=== PATIENT | female | born 1950 | race Caucasian/White ===

== ENCOUNTER → 2020-03-16 09:33 | Outpatient (BNVA) | payer MEDICARE, SELFPAY | PROVIDERS: Family Provider Family Medicine; PCP Family Medicine; Visit Provider Internal Medicine | DX: N81.10 Cystocele, unspecified (principal) | CPT/HCPCS: 87635 ==

== ENCOUNTER 2020-03-22 07:57 | Day surgery (SDC) | payer MEDICARE, SELFPAY ==
[2020-03-18 12:30] VITALS: BMI 24.4
--- NOTE | 2020-03-18 12:49 | P.ANESASSM_ITS ---
Pre-Anesthetic Assessment Pre-Anesthetic Assessment: Height/Weight: Height 1.6 m Weight 62.596 kg Preop Diagnosis: Vaginal vault prolapse after hysterectomy, Cystocele, Rectocele Proposed Procedure: Operation Date: 03/22/20 09:45 Proposed Procedures p Laparoscopic Uterosacral Ligament Suspen 87567 [id number] N81.10(Not Applicable) - MD renny Keith Posterior Repair Posterior Colporrhaphy(Not Applicable) - MD renny Keith poss Anterior Repair Anterior Colporrhaphy(Not Applicable) - MD renny Keith Cystoscopy(Not Applicable) - Abdifatah Waite MD Familial anesthetic complications: No problems Social: Social History: Tobacco Exam: Pre-Anes Outpt Exam: alert, oriented x 3, clear to auscultation bilaterally and regular rate & rhythm Airway: Cervical ROM: WNL MP: 2 Dentition: False CV/HEM: CV/HEM: HTN Metabolic: Metabolic: Hyperlipidemia Neuropsych: Neuropsych: VARGAS Comments: trigeminal neuralgia Anesthetic Plan: ASA status: 2 Anesthesia: General Risk of > 500 ml blood loss (7ml/kg in children): No PFSH Anesthesia PFSH: Medical History Hypercholesteremia Controlled with medication. Diagnosed in the Hypertension Diagnosed in 2019 and has been recently started on medication. Managed by primary care provider Migraines Managed with medication and Botox with Dr. Weaver. Surgical History H/O removal of cyst From jaw at the age of 10 S/P hysterectomy Vaginal hysterectomy with bilateral oophorectomy by Dr. Sarmiento in 1987 done for prolapse. Patient states pathology was benign. S/P lumpectomy, left breast Benign per patient. S/P tonsillectomy at age 1, patient thinks they may have taken adenoids as well but is unsure S/P tubal ligation 1983, done through the umbilicus Status post surgery Removal of mass from fallopian tube in the early . Benign-done by vertical midline infraumbilical incision. Status post surgery History of bilateral RK surgery and cataract removal Family History Family/Other Diabetes maternal great aunt Stroke maternal great aunt Mother Hypertension Breast cancer Mother, diagnosed at age 89 Uterine cancer Mother had a complete hysterectomy in her 30s due to female cancer Daughter Breast cancer diagnosed at age 50 Thyroid condition Denies family history of Colon cancer Ovarian cancer Heart disease Hyperlipidemia Social History (Updated 03/18/20 @ 10:24 by Marianne Philip LPN) Smoking and tobacco status: current every day smoker Alcohol intake: unknown Other details last substance use: Denies drug use Additional social history: Tobacco use: Started smoking at age of 26 and currently smokes 1 pack of cigarettes a day Drug use: Denies Alcohol abuse: Drinks an alcoholic beverage once a year Work: 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 Data Anesthesia Cardiac Studies: No Data to Display
[2020-03-18 12:59] LABS: Basophils % 0.3 %; Eosinophils % 0.6 %; Hematocrit 38.1 % (37.0-47.0); Hemoglobin 12.7 g/dL (11.5-15.3); Lymphocytes # 1.7 10^3/uL (0.8-4.8); Lymphocytes % 25.2 %; Mean Corpuscular HGB Conc 33.3 g/dL (30.0-36.0); Mean Corpuscular Hemoglobin 31.4 pg (28.0-34.0); Mean Corpuscular Volume 94.3 fL (81-99); Mean Platelet Volume 12.2 fL (7.4-10.4); Monocytes # 0.5 10^3/uL (0.2-0.9); Neutrophils % 66.6 %; Nucleated Red Blood Cells % 0 %; Platelet Count 183 10^3/cmm (130-400); Red Blood Count 4.04 10^6/uL (4.1-5.3); Red Cell Distribution Width 12.5 % (12.1-15.1); White Blood Count 6.8 10^3/uL (4.0-10.0)
[2020-03-22] VITALS (13 sets, daily range): BP systolic 139–188; BP diastolic 56–73; PULSE 70–96; RESP 13–24; TEMP 36.4–36.8; O2SAT 92–99
[2020-03-22] MEDS: sodium chloride 0.9% 1,000 ML 30 ML IV (08:33)
[2020-03-22] MEDS: phenazopyridine 100 mg Tablet 200 MG PO (08:34)
--- NOTE | 2020-03-22 09:16 | ANES.PAUD2 ---
Pre-Anesthetic Update Pre-Anesthetic Assessment: Date of Surgery/Procedure: 03/22/20 Preop Diagnosis: Vaginal vault prolapse after hysterectomy, Cystocele, Rectocele Proposed Procedure: Operation Date: 03/22/20 09:30 Proposed Procedures p Laparoscopic Uterosacral Ligament Suspen 46039 [id number] N81.10(Not Applicable) - Abdifatah Waite MD s Posterior Repair Posterior Colporrhaphy(Not Applicable) - Abdifatah Waite MD s poss Anterior Repair Anterior Colporrhaphy(Not Applicable) - Abdifatah Waite MD s Cystoscopy(Not Applicable) - Abdifatah Waite MD Any changes to Pre-Anesthetic Assessment?: No Last Intake: Intake Last Liquid Date 03/21/20 Last Liquid Time 23:00 Last Solid Date 03/21/20 Last Solid Time 19:00 Vitals: Temperature 97.7 F 03/22/20 08:09 Pulse Rate 72 03/22/20 08:09 Pulse Rhythm 03/22/20 08:12 Pulse Strength 3+ Normal 03/22/20 08:12 Respiratory Rate 18 03/22/20 08:09 Blood Pressure 188/65 03/22/20 08:09 Blood Pressure Melissa n 106 03/22/20 08:09 Pulse Oximetry 99 03/22/20 08:09 Oxygen Delivery Me thod 03/22/20 08:12 Exam: Pre-Anes Outpt Exam: alert, oriented x 3, clear to auscultation bilaterally and regular rate & rhythm Cardiac Studies: No Data to Display
--- NOTE | 2020-03-22 11:09 | W.PM.OPSUD ---
Surgery/Procedure H&P Update DATE OF PROCEDURE: March 22, 2020 DATE H&P PERFORMED: 03/18/20 H&P UPDATE INFORMATION: I have reviewed H&P completed within last 30 days, I have examined patient prior to procedure, No changes to prior documentation and H&P is in [facility] EMR on date indicated PREOP DIAGNOSIS: Vaginal vault prolapse after hysterectomy, Cystocele, Rectocele PLANNED PROCEDURE: Operation Date: 03/22/20 09:30 Proposed Procedures p Laparoscopic Uterosacral Ligament Suspen 34774 [id number] N81.10(Not Applicable) - Abdifatah Waite MD s Posterior Repair Posterior Colporrhaphy(Not Applicable) - Abdifatah Waite MD s poss Anterior Repair Anterior Colporrhaphy(Not Applicable) - Abdifatah Waite MD s Cystoscopy(Not Applicable) - Abdifatah Waite MD
--- NOTE | 2020-03-22 11:56 | SUR.OPER ---
Family Notified Of Patient's Status Via Phone.
--- NOTE | 2020-03-22 13:26 | SUR.OPER ---
Family Notified Of Patient's Status Via Phone.
--- NOTE | 2020-03-22 14:11 | PM.OP ---
Operative Report Date of procedure: March 22, 2020 Pre-op Diagnosis: Vaginal vault prolapse after hysterectomy, Cystocele, Rectocele Post-op Diagnosis: Vaginal vault prolapse after hysterectomy, Cystocele, Rectocele, Extensive omental and bowel adhesions Procedure Done: Laparoscopic uterosacral ligament suspension with laparoscopic enterocele repair, Laparoscopic lysis of adhesions. Specimens removed/disposition: None Surgeon: Abdifatah Waite Office Machinery Or Equipment Installer: None Anesthesia: General Estimated blood loss (mL): 50 IV fluids (mL): 1,000 Complications: None Findings: Extensive omental adhesions to the anterior abdominal wall extending from above the navel to the level of the pelvic brim. It extended for a width of approximately 4 cm at the cephalic end and narrowed down to approximately a centimeter at the lower end. Within the pelvis, the omentum was densely adherent along the bladder. The sigmoid colon was adherent along the left pelvic brim and pelvic sidewall. Fimbriated end of the right fallopian tube was identified. The right ovary was surgically absent. The left tube and ovary were surgically absent. Large enterocele was noted. Brief History: Patient is a 69-year-old female 6, para 6 who is status post hysterectomy in 1987. She reports having had both tubes and ovaries removed as well. She presented to the office as a referral from Dr. Mclaughlin on 01/18/2020 and was evaluated by Dr. Juarez. Patient reported that she had a bulge that was noted while wiping with it extending down to the vaginal opening and occasionally beyond. On evaluation, she was found to have a second-degree vault prolapse with a first to second-degree cystocele and 3rd-4th degree rectocele. Treatment options were discussed with her questions were answered. She has been scheduled for a laparoscopic uterosacral ligament suspension, Possible anterior repair, posterior repair, cystoscopy. Procedure: Patient was taken to the operating room where general anesthesia was obtained. She was prepped and draped in usual sterile fashion dorsal supine position with legs in Guillermo style stirrups. Tay catheter was inserted. Sequential compression boots have been placed prior to starting the case. The infraumbilical area was injected with 1% lidocaine with epinephrine. Skin incision was made with a knife in the lower edge of the navel and a size 10 trocar and sheath were inserted under direct visualization. Trocar was removed and scope placed, confirming intra-abdominal placement. Abdomen was plated with carbon dioxide. Patient was found to have adhesions down the midline of the abdomen preventing visualization of any lower pelvic structures with the umbilical site. As a result, a left upper quadrant site trocar was placed. The skin was injected with 1% lidocaine with epinephrine. Skin incision was made with a knife and a trocar and sheath inserted under direct visualization. 5 mm scope was inserted and the abdomen further inspected. Adhesions of the omentum were present and extended from approximately a centimeter above the navel down the midline to approximately the pelvic brim. At the cephalic end of the adhesions, it was approximately 4 cm in width and narrowed to approximately 1 cm width at the lower end. In the left lower quadrant lateral to the inferior epigastric vessels, skin was injected with 1% lidocaine with epinephrine. Skin incision made with a knife and a 5 mm trocar and sheath inserted under direct visualization. Using laparoscopic scissors with monopolar cautery, the omental adhesions were carefully taken down. This took approximately 15 minutes to complete. In the right lower quadrant lateral to the inferior epigastric vessels, the skin was injected with 1% lidocaine with epinephrine. Skin incision was made with a knife and a 5 mm trocar and sheath inserted under direct visualization. The pelvis was then inspected. The omentum was found to be densely adherent to the bladder area, almost completely obstructing visualization of the main part of the pelvis. The sigmoid was also found to be densely adherent along the left pelvic brim and down the left pelvic sidewall. Using laparoscopic scissors, the adhesions of the omentum were carefully taken down. During this process, the fimbriated end of the right fallopian tube was identified. Once the omentum was freed, the adhesions of the sigmoid colon were carefully taken down sharply. Care was taken not to damage the bowel or underlying structures in the process. This portion of the adhesio lysis took approximately an hour and 15 minutes to complete for a total adhesio lysis of an hour and 30 minutes. Pelvis was then thoroughly inspected. Right ovary was noted to be surgically absent. Left tube and ovary were surgically absent. Uterus was surgically absent. The right fimbriated end of the fallopian tube was present. A large enterocele was also noted. Due to bleeding from the fallopian tube, decision was made to excise the tube. Using LigaSure device, the fallopian tube was freed from the right pelvic sidewall and removed. Approximately 2 fingerbreadths above the pubic symphysis in the midline, skin was injected with 1% lidocaine with epinephrine. Skin incision was made with a knife and a 5 mm trocar and sheath inserted under direct visualization. Using 2-0 silk suture, a pursestring stitch was placed, performing a modified Moschcowitz type enterocele repair. Care was taken not to incorporate or kink the ureters in this process. This was then tied and completely closed the enterocele pouch. The vaginal vault was then deflected and a cephalad direction identifying the cephalad most displacement. Using 0 Ethibond suture, stitch was placed into the right uterosacral ligament at the level of the cephalad most displacement of the vagina. This was then incorporated into the right side of the vaginal vault. It was then tied, securing the vagina to the uterosacral ligament. The left side was inspected, but uterosacral ligament could not be adequately identified and as a result decision was made to not to place a stitch on the left side. Tay catheter was removed and cystoscopy performed. Both ureters were noted to be effluxing urine well. No bladder masses were noted. No suture material was noted within the bladder. Bladder was drained and Tay catheter was reinserted. The vagina was then inspected and the cystocele and rectocele were no longer present following the vault suspension. As result anterior and posterior repair were not needed. The abdomen was deflated and the sheaths were removed. Skin incisions were closed with 4-0 Vicryl suture. Skin glue were applied to all sites. Patient tolerated procedures well. Sponge and needle counts were correct. Drains: Tay catheter Post Operative Status: Patient was transferred recovery room in satisfactory condition.
--- NOTE | 2020-03-22 14:20 | SUR.PHASEI ---
1418 PATIENT TO PACU FROM OR. NO DISTRESS. SPO2 98% ON SIMPLE MASK AT 8L. DOS SANTOS CATH IN PLACE. 4 INCISIONS TO ABDOMEN, CLOSED WITH EXOFIN.
[2020-03-22] MEDS: ondansetron 2 mg/ML SDV 2 mL 4 MG IVP (14:40)
--- NOTE | 2020-03-22 14:46 | PM.PACU ---
PACU note Post-Anesthesia Exam: awake and vital signs stable Disposition: admitted
--- NOTE | 2020-03-22 15:01 | SUR.PHASEI ---
1446 PATIENT TO OB. C/O CRAMPING TO ABDOMEN. DOS SANTOS CATH IN PLACE. A/OX3.
[2020-03-22] MEDS: ibuprofen 600 mg Tablet PO (15:32)
--- NOTE | 2020-03-22 19:20 | P.DS_ITS ---
Discharge Providers Date of Discharge: March 22, 2020 Attending Provider at Discharge: Abdifatah Waite MD Primary Care Provider: Mahad Mclaughlin MD Diagnoses at Discharge Discharge Diagnosis (1) Vaginal vault prolapse after hysterectomy: Status: Acute (2) Adhesion of omentum: Status: Acute (3) Intestinal adhesions: Status: Acute Reason for Visit Reason for Visit: vaginal prolapse Hospital Course Hospital Course: Patient is a 69-year-old female 6, para 6 who is status post hysterectomy in 1987. She presented to the office as a referral from Dr. Mclaughlin due to a bulge at the vaginal opening. She states that this will protrude beyond the opening at times. She denied urinary leaking problems with associated with it. She had been found to have a second-degree vaginal vault prolapse with a first to second-degree cystocele and 3rd-4th degree rec tocele. Treatment options were discussed with her and she was presenting for surgical treatment today. She had a laparoscopic uterosacral ligament suspension with enterocele repair and extensive adhesio lysis. She had been found to have extensive adhesions during the surgery. After the vault suspension, she was noted to have no significant cystocele or rectocele and as a result no further repair was needed for that. Following surgery she was initially treated with parenteral pain medication. She was transferred to the floor for further monitoring and pain management. By the evening, she was reporting good pain management with oral medications. She denied lightheadedness or dizziness with ambulation. She denied shortness of breath or chest pains. Tay catheter had been removed and she denied problems with urination. She was requesting to go home. Since she was doing well, she was discharged to home. She was instructed to follow-up in the office at her scheduled postoperative visit in approximately 2 weeks. She was also instructed to resume her home medications. She was given a prescription for tramadol and was to use [id number] ibuprofen. Physical Exam Urinary Catheter Management^: F: Cath Placed During This Visit: yes Urinary Catheter Date of Insertion: 03/22/20 Urinary Catheter Time of Insertion: 11:42 Discharge Data Data Completed and Pending: Pending at discharge Category Date Time Status ES surgery / GI i mages Routine Exams 03/22/20 10:38 Taken Hemagram Timed Lab 03/23/20 05:00 Uncollected Retype for Patiet s ABO/Rh Routine Lab 03/22/20 09:23 Ordered Labs from last 24 hours 03/22/20 08:30 Blood Type AB Positive Rho(D) Type Positive Antibody Screen Negative Vitals: Last Vital Signs Temp 97.6 F 03/22/20 14:45 Pulse 72 03/22/20 14:45 Resp 13 03/22/20 14:45 BP 162/72 03/22/20 14:45 Pulse Ox 93 03/22/20 14:45 Discharge Plan Discharge Patient Disposition: Home Condition: Stable Prescriptions: New tramadol 50 mg Tablet 50 - 100 mg PO Q6H PRN (Reason: Moderate Pain) Qty: 20 RF: 0 Continued simvastatin 40 mg tablet 40 mg PO .every other day RF: 0 levetiracetam 1,000 mg tablet for suspension 1,000 mg PO DAILY RF: 0 diazepam 5 mg tablet 5 mg PO DAILY PRN (Reason: Anxiety) RF: 0 estradiol 0.5 mg tablet 0.5 mg PO DAILY Qty: 30 RF: 12 estradiol [Estrace] 0.01 % (0.1 mg/gram) cream 0.5 gm VAGINAL .twice weekly Qty: 42.5 RF: 1 Discharge Orders: Discharge Order (Routine); Ordered 03/22/20 Ordered By: Abdifatah Waite Referrals: Abdifatah Waite MD [Physician] - 04/07/20 8:00 am (Postoperative visit) Discharge Diet: Regular Discharge Activity: Limit activity as instructed Patient Instructions: OB Abdominal Surgery - [facility] Activity Restrictions/Additional Instructions: May use [id number]-oibrmok ibuprofen 200 mg, 3 tablets every 6 hours as needed for pain. May use MiraLAX (or store brand), follow instructions on bottle, as needed for constipation. Discharge Attestations Time Spent in Discharge Care*: less than 30 min Quality Metrics Clinical Quality Measures During this hospital stay, did patient experience: None Coding Level of Care Code Acute Spot Machine Operator for Chg Fwd Diagnoses Vaginal vault prolapse after hysterectomy N99.3 Adhesion of omentum K66.0 Intestinal adhesions K66.0
== END 2020-03-22 20:00 | disposition home or self-care (01) ==
LOC: OR 07:57 → OBGYN 14:47
PROVIDERS: PCP Family Medicine; Visit Provider Obstetrics & Gynecology
PROC: 0USG4ZZ Reposition Vagina, Percutaneous Endoscopic Approach (ICD-10-PCS; CPT 57425; principal; 2020-03-22 09:30)
PROC: 0TJB8ZZ Inspection of Bladder, Via Natural or Artificial Opening Endoscopic (ICD-10-PCS; CPT 52000; 2020-03-22 09:30)
DX: N99.3 Prolapse of vaginal vault after hysterectomy (principal); K66.0 Peritoneal adhesions (postprocedural) (postinfection); I10 Essential (primary) hypertension; E78.5 Hyperlipidemia, unspecified; F17.210 Nicotine dependence, cigarettes, uncomplicated
CPT/HCPCS: 57283; 12345; 36415; 85025; 86850; 86900; 87086; J0131; J0690; J2405; J2704; J3010; J3490; J7030

== ENCOUNTER 2020-11-14 12:01 | Outpatient (CLI) | payer MEDICARE, SELFPAY ==
--- NOTE | 2020-11-14 12:17 | XR_ITS ---
WS: [id number] Exam: XR ribs LT 2V* [id number] Date/Time of Exam: 11/14/2020 12:19 PM Reason For Exam: RIB PAIN, LEFT No acute left rib fracture noted. The left lung is clear and fully expanded. No pleural or pulmonary reactive changes. XR/XR ribs LT 2V* [id number] IMPRESSION: 1. Negative left rib study.
--- NOTE | 2020-11-14 12:18 | XR_ITS ---
WS: [id number] Exam: XR thoracic spine 3V* [id number] Date/Time of Exam: 11/14/2020 12:19 PM Reason For Exam: BACK PAIN No acute fracture or dislocation. Mild spondylosis. Slight levoscoliosis. Normal paraspinal soft tiss ues. Osteopenia. XR/XR thoracic spine 3V* [id number] IMPRESSION: 1. Mild degenerative changes and osteopenia. No fracture or malalignment. 2. Minimal scoliosis.
== END 2020-11-14 12:02 | disposition home or self-care (01) ==
PROVIDERS: PCP Family Medicine; Visit Provider Family Medicine
DX: R07.81 Pleurodynia (principal); M54.6 Pain in thoracic spine; M85.88 Other specified disorders of bone density and structure, other site
CPT/HCPCS: 71100; 72072

== ENCOUNTER 2021-09-08 13:20 | Outpatient (CLI) | payer MEDICARE, SELFPAY ==
--- NOTE | 2021-09-08 13:31 | MM_ITS ---
WS: [id number] BILATERAL 3D TOMOSYNTHESIS DIGITAL SCREENING MAMMOGRAPHY WITH CAD CLINICAL INFORMATION: SCREENING HISTORY: Screening mammogram. No current complaints. COMPARISON: July 01, 2018 TECHNIQUE: Bilateral CC and MLO views. FINDINGS: Scattered fibroglandular densities bilaterally. 7 mm ovoid nodule central RIGHT breast near the 12:00 position. Recommend RIGHT breast diagnostic mammography and ultrasound. Vascular calcification. LEFT breast is unchanged. IMPRESSION: MM/[place] [id number] BI-RADS: 0-Incomplete: Need additional imaging evaluation FOLLOW UP: Need Additional Imaging Recommend RIGHT breast diagnostic mammography and ultrasound in further evaluat ion.
== END 2021-09-08 13:21 | disposition home or self-care (01) ==
LOC: RADSHAW 13:26
PROVIDERS: PCP Family Medicine; Visit Provider Family Medicine
DX: Z12.31 Encounter for screening mammogram for malignant neoplasm of breast (principal)
CPT/HCPCS: 77063; 77067

== ENCOUNTER 2021-10-02 13:24 | Outpatient (CLI) | payer MEDICARE, SELFPAY ==
--- NOTE | 2021-10-02 13:32 | MM_ITS ---
WS: [id number] RIGHT 3D TOMOSYNTHESIS DIGITAL MAMMOGRAPHY WITH CAD CLINICAL INFORMATION: ABNORMAL MAMMOGRAM COMPARISON: September 08, 2021 TECHNIQUE: 3 views of the right breast were obtained. FINDINGS: Scattered fibroglandular densities of the right breast. Stable 7 mm ovoid nodule central RIGHT breast in the 12:00 position. Ultrasound is pending. Vascular calcification. ULTRASOUND BREAST RIGHT TECHNIQUE: Ultrasound right breast focused area of concern. CLINICAL INFORMATION: ABNORMAL MAMMOGRAM COMPARISON: None. FINDINGS: Ultrasound RIGHT breast at the 11 to 1:00 position. Slightly lobulated complex cyst at the 11:00 posi tion 2 cm from the nipple measuring 5.0 x 6.6 x 4.7 mm. Additional simple cyst at the 12:00 position measuring 5.0 x 4.9 x 2.4 mm. Recommend return to annual screening mammography. MM/[place] [id number] IMPRESSION: BI-RADS: 2-Benign FOLLOW UP: 1 Year Follow-up Recommend return to annual screening mammography.
== END 2021-10-02 13:25 | disposition home or self-care (01) ==
LOC: RAD 13:26
PROVIDERS: PCP Family Medicine; Visit Provider Family Medicine
DX: R92.8 Other abnormal and inconclusive findings on diagnostic imaging of breast (principal)
CPT/HCPCS: 76642; 77061

== ENCOUNTER → 2022-05-01 11:33 | Outpatient (BNVA) | payer MEDICARE, SELFPAY | PROVIDERS: PCP Family Medicine; Visit Provider Family Medicine | DX: Z51.81 Encounter for therapeutic drug level monitoring (principal); L29.9 Pruritus, unspecified; L50.9 Urticaria, unspecified; N95.1 Menopausal and female climacteric states | CPT/HCPCS: 80053; 85025; 85651; 86141 ==

== ENCOUNTER → 2023-02-12 14:47 | Outpatient (BNVA) | payer MEDICARE, SELFPAY | PROVIDERS: PCP Family Medicine; Visit Provider Family Medicine | DX: E78.5 Hyperlipidemia, unspecified (principal); Z13.220 Encounter for screening for lipoid disorders; R25.1 Tremor, unspecified; Z51.81 Encounter for therapeutic drug level monitoring | CPT/HCPCS: 80053; 80061; 83735; 84439; 84443; 85025 ==

== ENCOUNTER 2023-05-10 15:17 | Outpatient (CLI) | payer MEDICARE, SELFPAY ==
[2023-05-10] MEDS: iohexol 350 mg/mL 500 mL Btl (per mL) IV (15:20)
--- NOTE | 2023-05-10 15:30 | CTR_ITS ---
PROCEDURE INFORMATION: Exam: CT Abdomen And Pelvis With Contrast Exam date and time: 05/10/2023 3:28 PM Age: 72 years old Clinical indication: Abdominal pain; Other: Llq pain; Additional info: Llq abd pain, please schedule for 05/10/23 urgently. Thanks! TECHNIQUE: Imaging protocol: Computed tomography of the abdomen and pelvis with contrast. Radiation optimization: All CT scans at this facility use at least one of these dose optimization techniques: automated exposure control; mA and/or kV adjustment per patient size (includes targeted exams where dose is matched to clinical indication); or iterative reconstruction. Contrast material: OMNI 350; Contrast volume: 100 ml; Contrast route: INTRAVENOUS (IV); REPORTING DATA: Count of CT and Cardiac NM exams in prior 12 months: This patient has received 0 known CTs and 0 known cardiac nuclear medicine studies in the 12 months prior to the current study. COMPARISON: CT abdomen pelvis w con* [id number] 03/27/2019 9:38 AM RADIATION DOSE METRICS: Total DLP (mGy-cm): 277.08 FINDINGS: Liver: No mass. Gallbladder and bile ducts: No calcified stones. No ductal dilation. Pancreas: No ductal dilation. Spleen: No splenomegaly. Adrenal glands: No mass. Kidneys and ureters: No hydronephrosis. Stomach and bowel: No obstruction. Inflammatory changes around the sigmoid colon. On sagittal image 26 there is a 1.6 cm extraluminal density which could reflect developing phlegmon. No abscess at this time otherwise. Appendix: No evidence of appendicitis. Intraperitoneal space: No free air. No significant fluid collection. Vasculature: No abdominal aortic aneurysm. Lymph nodes: No enlarged lymph nodes. Urinary bladder: No acute findings. Reproductive: Unremarkable as visualized. Bones/joints: Degenerative changes without acute findings. Soft tissues: Unremarkable. CT/CT abdomen pelvis w con* [id number] IMPRESSION: Acute sigmoid diverticulitis. No discrete abscess at this time, however, there is a small thick extraluminal density as described. If clinically worsening/progressing, recommend follow-up for potential developing abscess.
== END 2023-05-10 15:18 | disposition home or self-care (01) ==
LOC: RAD 15:17
PROVIDERS: PCP Family Medicine; Visit Provider Family Medicine
DX: K57.32 Diverticulitis of large intestine without perforation or abscess without bleeding (principal); R10.32 Left lower quadrant pain
CPT/HCPCS: 74177; Q9967

== ENCOUNTER → 2023-08-08 09:00 | Outpatient (BNVA) | payer MEDICARE, SELFPAY | PROVIDERS: PCP Family Medicine; Referring Provider Family Medicine; Visit Provider Surgery | DX: K57.92 Diverticulitis of intestine, part unspecified, without perforation or abscess without bleeding (principal) | CPT/HCPCS: 99204 ==

== ENCOUNTER 2023-09-18 06:40 | Day surgery (SDC) | payer MEDICARE, SELFPAY ==
[2023-09-18] MEDS: sodium chloride 0.9% 1,000 ML 30 ML IV (07:10)
[2023-09-18 07:12] VITALS: BP 163/85; PULSE 85; RESP 18; TEMP 36.6; O2SAT 96; BMI 24.3
--- NOTE | 2023-09-18 07:43 | ANES.PREANE2 ---
Pre-Anesthetic Assessment Height/Weight: Height 1.59 m Weight 61.235 kg Temp Pulse Resp BP Pulse Ox O2 Del Method 97.8 F 85 18 163/85 96 Room Air 09/18/23 07:12 09/18/23 07:12 09/18/23 07:12 09/18/23 07:12 09/18/23 07:12 09/18/23 07:12 Operation Date: 09/18/23 08:00 Proposed Procedures p [id number] colon [id number] screen colon H risk K57.92(Not Applicable) - Js Stratton DO Familial anesthetic complications: None Was Beta Santa taken within 24 hours: N/A Was Clonidine taken within 24 hours: N/A Last intake: Intake Last Liquid Date 09/17/23 Last Liquid Time 23:30 Last Solid Date 09/16/23 Last Solid Time 18:00 Social Tobacco and No alcohol Exam alert, oriented x 3, clear to auscultation bilaterally and regular rate & rhythm Airway Mallampati: Class II Dentition: false CV/HEM Hypertension Metabolic Thyroid Disease Anesthetic Plan ASA status: 2 Anesthesia: MAC Risk of > 500 ml blood loss (7ml/kg in children): No Medications/Allergies Home Medications Medication Instructions Recorded Confirmed Last Taken Type ondansetron HCl 4 mg tablet 4 mg PO Q8H PRN nausea and 05/09/23 09/18/23 09/17/23 Rx vomiting #20 tabs diazepam 5 mg tablet 5 mg PO DAILY PRN Anxiety #30 tabs 06/14/23 09/18/23 09/17/23 Rx levothyroxine 50 mcg tablet 50 mcg PO DAILY #30 tabs 06/18/23 09/18/23 09/17/23 Rx promethazine 25 mg tablet 25 mg PO TID PRN nausea and 08/01/23 09/18/23 09/17/23 Rx vomiting #30 tabs L.acidophilus,rhamnosus-B.breve-S.thermophilus 2 tab PO DAILY 09/16/23 09/18/23 09/17/23 History 3 billion cell chew tab estradiol 0.5 mg tablet 0.5 mg PO DAILY 09/16/23 09/18/23 09/17/23 History ibuprofen 200 mg tablet 800 mg PO Q6H PRN Migraine Headache 09/16/23 09/18/23 09/17/23 History levetiracetam 1,000 mg tablet 1,000 mg PO BID 09/16/23 09/18/23 09/17/23 History onabotulinumtoxinA 100 unit 1 unit intradermal .Q3MO 09/16/23 09/18/23 09/17/23 History solution for injection (Botox) Allergies Allergy/AdvReac Type Severity Reaction Status Date / Time carbamazepine Allergy Severe severe Verified 09/18/23 06:43 hyponatremia codeine AdvReac vomiting, Verified 09/18/23 06:43 itching morphine AdvReac severe Verified 09/18/23 06:43 vomiting Current Medications Generic Name Dose Route Start Last Admin Trade Name Freq PRN Reason Stop Dose Admin Sodium Chloride 1,000 mls @ 30 mls/hr 09/18/23 06:45 09/18/23 07:10 Sodium Chloride 0.9% IV 09/19/23 06:44 30 mls/hr .Q24H VIVIENNE Administration PFSH Anesthesia Medical History Trigeminal neuralgia Migraines Managed with medication and Botox with Dr. Weaver. Hypertension Diagnosed in 2019 and has been recently started on medication. Managed by primary care provider Hypercholesteremia Controlled with medication. Diagnosed in the Surgical History Hx of colonoscopy with polypectomy 10 + years ago S/P laparoscopic procedure (03/22/20) USLS with enterocele repair and lysis of adhesions. [place]. Waite [place] [facility] [place], [place] Status post surgery History of bilateral RK surgery and cataract removal H/O removal of cyst (~1959) From jaw at the age of 10 S/P hysterectomy (~1987) TVH with BSO. Performed by Dr. Sarmiento at [facility] [place], [place]. S/P tubal ligation (~1983) Done through the umbilicus Status post surgery Removal of mass from fallopian tube in the early . Benign-done by vertical midline infraumbilical incision. S/P tonsillectomy (~1950) at age 1, patient thinks they may have taken adenoids as well but is unsure S/P lumpectomy, left breast Benign per patient. Family History Family/Other Diabetes maternal great aunt Stroke maternal great aunt Mother Hypertension Breast cancer Mother, diagnosed at age 89 Uterine cancer Mother had a complete hysterectomy in her 30s due to female cancer Daughter Breast cancer diagnosed at age 50 Thyroid disease Denies family history of Colon cancer Ovarian cancer Heart disease Hyperlipidemia Social History Smoking and tobacco/nicotine status: current every day tobacco/nicotine user Alcohol intake: unknown Substance/Drug Use: unknown Additional social history: Tobacco use: Started smoking at age of 26 and currently smokes 1 pack of cigarettes a day Drug use: Denies Alcohol abuse: Drinks an alcoholic beverage once a year Work: 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 Data Anesthesia Cardiac Studies: No Data to Display
--- NOTE | 2023-09-18 08:01 | PM.HP ---
Providers/Chief Complaint Primary Care Provider: Mahad Mclaughlin MD Chief Complaint: K57.92 History of Present Illness Nara Mandel is a 73 year old female Review of Systems General: Reports: 10 or more systems reviewed and unremarkable except in HPI and below Medications/Allergies Home Medications Medication Instructions Recorded Confirmed Last Taken Type ondansetron HCl 4 mg tablet 4 mg PO Q8H PRN nausea and 05/09/23 09/18/23 09/17/23 Rx vomiting #20 tabs diazepam 5 mg tablet 5 mg PO DAILY PRN Anxiety #30 tabs 06/14/23 09/18/23 09/17/23 Rx levothyroxine 50 mcg tablet 50 mcg PO DAILY #30 tabs 06/18/23 09/18/23 09/17/23 Rx promethazine 25 mg tablet 25 mg PO TID PRN nausea and 08/01/23 09/18/23 09/17/23 Rx vomiting #30 tabs L.acidophilus,rhamnosus-B.breve-S.thermophilus 2 tab PO DAILY 09/16/23 09/18/23 09/17/23 History 3 billion cell chew tab estradiol 0.5 mg tablet 0.5 mg PO DAILY 09/16/23 09/18/23 09/17/23 History ibuprofen 200 mg tablet 800 mg PO Q6H PRN Migraine Headache 09/16/23 09/18/23 09/17/23 History levetiracetam 1,000 mg tablet 1,000 mg PO BID 09/16/23 09/18/23 09/17/23 History onabotulinumtoxinA 100 unit 1 unit intradermal .Q3MO 09/16/23 09/18/23 09/17/23 History solution for injection (Botox) Allergies Allergy/AdvReac Type Severity Reaction Status Date / Time carbamazepine Allergy Severe severe Verified 09/18/23 06:43 hyponatremia codeine AdvReac vomiting, Verified 09/18/23 06:43 itching morphine AdvReac severe Verified 09/18/23 06:43 vomiting PFSH Acute PFSH: Medical History Trigeminal neuralgia Migraines Managed with medication and Botox with Dr. Weaver. Hypertension Diagnosed in 2019 and has been recently started on medication. Managed by primary care provider Hypercholesteremia Controlled with medication. Diagnosed in the Surgical History Hx of colonoscopy with polypectomy 10 + years ago S/P laparoscopic procedure (03/22/20) USLS with enterocele repair and lysis of adhesions. Per[place] by Dr. Waite at [facility] [place], [place] Status post surgery History of bilateral RK surgery and cataract removal H/O removal of cyst (~1959) From jaw at the age of 10 S/P hysterectomy (~1987) TVH with BSO. Performed by Dr. Sarmiento at [facility] [place], [place]. S/P tubal ligation (~1983) Done through the umbilicus Status post surgery Removal of mass from fallopian tube in the early . Benign-done by vertical midline infraumbilical incision. S/P tonsillectomy (~1950) at age 1, patient thinks they may have taken adenoids as well but is unsure S/P lumpectomy, left breast Benign per patient. Family History Family/Other Diabetes maternal great aunt Stroke maternal great aunt Mother Hypertension Breast cancer Mother, diagnosed at age 89 Uterine cancer Mother had a complete hysterectomy in her 30s due to female cancer Daughter Breast cancer diagnosed at age 50 Thyroid disease Denies family history of Colon cancer Ovarian cancer Heart disease Hyperlipidemia Social History Smoking and tobacco/nicotine status: current every day tobacco/nicotine user Alcohol intake: unknown Substance/Drug Use: unknown Additional social history: Tobacco use: Started smoking at age of 26 and currently smokes 1 pack of cigarettes a day Drug use: Denies Alcohol abuse: Drinks an alcoholic beverage once a year Work: 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 Vitals/I&O/Wt Last Vital Signs Temp 97.8 F 09/18/23 07:12 Pulse 85 09/18/23 07:12 Resp 18 09/18/23 07:12 BP 163/85 09/18/23 07:12 Pulse Ox 96 09/18/23 07:12 O2 Del Method Room Air 09/18/23 07:12 Weight last 48 hrs Weight 135 lb A&P Assessment and plan (1) Diverticulitis: Plan Colonoscopy Attestations Medical Necessity Statement*: Home Coding Level of Care Code Acute Code for [facility] Diagnoses Diverticulitis K57.92
[2023-09-18 08:30] VITALS: BP 156/61; PULSE 67; RESP 14; TEMP 36.2; O2SAT 98
[2023-09-18 08:40] VITALS: BP 195/62; PULSE 79; RESP 16; O2SAT 96
[2023-09-18 08:55] VITALS: BP 183/69; PULSE 68; RESP 18; O2SAT 99
--- NOTE | 2023-09-18 09:02 | PC.NURSE ---
blood pressure elevated post op. CASSIE Kahn consulted. Advised patient to check blood pressure over the next few days and to seek medical treatment if blood pressure escalated or patient became symptomatic. Also advised to followup with primary care provider if hypertension persists.
--- NOTE | 2023-09-18 09:10 | ANE.PACU2 ---
Inpatient post-anesthesia follow up: Airway intact: Yes Vital signs: Temperature 97.1 F Pulse Rate 68 Respiratory Rate 18 Blood Pressure 183/69 Pulse Oximetry 99 Oxygen Delivery Me thod Room Air Oxygen Flow Rate Fraction of Inspir ed Oxygen Hydration adequate: Yes Nausea and vomiting: No Pain level: 1 Mental status: Baseline
== END 2023-09-18 09:13 | disposition home or self-care (01) ==
PROVIDERS: PCP Family Medicine; Visit Provider Surgery
PROC: 0DJD8ZZ Inspection of Lower Intestinal Tract, Via Natural or Artificial Opening Endoscopic (ICD-10-PCS; CPT 45378; principal; 2023-09-18 08:00)
DX: K57.30 Diverticulosis of large intestine without perforation or abscess without bleeding (principal); D12.8 Benign neoplasm of rectum; I10 Essential (primary) hypertension; F17.200 Nicotine dependence, unspecified, uncomplicated
CPT/HCPCS: 45385; 88305; J2704; J3490; J7030

== ENCOUNTER → 2023-09-30 10:05 | Outpatient (BNVA) | payer MEDICARE, SELFPAY | PROVIDERS: PCP Family Medicine; Visit Provider Surgery | DX: K57.92 Diverticulitis of intestine, part unspecified, without perforation or abscess without bleeding (principal); K63.5 Polyp of colon | CPT/HCPCS: 99214 ==

== ENCOUNTER 2024-12-23 06:54 | Outpatient (CLI) | payer MEDICARE, SELFPAY ==
--- NOTE | 2024-12-23 07:14 | MR_ITS ---
WS: [id number] MRI BRAIN WITH AND WITHOUT CONTRAST HISTORY: TRIGEMINAL NEURALGIA/MIGRAINE W/AURA/DIZZINESS/GIDDINESS COMPARISON: None available. TECHNIQUE: Multiplanar imaging performed through the brain with MultiHance 14 ml's IV. No acute infarcts are seen. Mendez-white matter differentiation is well preserved. Minimal volume loss. No prior infarcts. No significant small vessel disease. Prior lacunar infarct in the RIGHT cerebellum. No hemosiderin. Ventricles and extra-axial spaces are normal. Clivus and pituitary gland are normal. Visualized posterior fossa and brainstem are also normal. No mass or signal abnormality at the cerebellopontine angles. Postcontrast images are negative for masses or vascular malformations. No significant enhancement is identified at the 7th or 8th cranial nerve complexes. Please note this study was not performed as an internal auditory canal exam therefore high resolution imaging has not been submitted. No signal abnormality along the visualized trigeminal nerve. No vessel contact in the expected location of the trigeminal nerve. Dural venous sinuses are normal. Paranasal sinuses: Well aerated with no significant disease. Mastoid air cells: Normal. Calvarium and scalp: Normal. MR/MR head wo/w con [id number] IMPRESSION: 1. No acute infarction or hemorrhage. 2. Remote RIGHT cerebellar lacunar infarct. 3. No signal abnormality at the cerebellopontine angles or along the 5th crani al nerve. Please note this study was not performed as a high-resolution IACs MR I. If further evaluation is necessary consider MRI IACs to better identify and evaluate the cranial nerves. 4. No sinus disease. 5. No significant volume loss.
[2024-12-23] MEDS: gadobenate dimeglumine 20 mL vial 14 ML IV (08:00)
== END 2024-12-23 06:55 | disposition home or self-care (01) ==
LOC: RAD 06:55
PROVIDERS: PCP Family Medicine; Visit Provider Internal Medicine
DX: G50.0 Trigeminal neuralgia (principal); G43.111 Migraine with aura, intractable, with status migrainosus; R42 Dizziness and giddiness; R44.1 Visual hallucinations
CPT/HCPCS: 70553